=== PATIENT | female | born 1965 | race Caucasian/White ===

== ENCOUNTER 2022-03-22 11:43 | Outpatient (CLI) | payer BC | END 2022-03-22 11:44 | disposition home or self-care (01) | LOC: CSHMAMMO 11:43 | PROVIDERS: ATTEND Family Medicine | DX: Z00.00 Encounter for general adult medical examination without abnormal findings (principal); Z80.3 Family history of malignant neoplasm of breast | CPT/HCPCS: 77063; 77067 ==

== ENCOUNTER 2024-03-25 13:37 | Outpatient (CLI) | payer BC | END 2024-03-25 13:38 | disposition home or self-care (01) | LOC: CSHMAMMO 13:37 | PROVIDERS: ATTEND Family Medicine | DX: Z12.31 Encounter for screening mammogram for malignant neoplasm of breast (principal); Z80.3 Family history of malignant neoplasm of breast | CPT/HCPCS: 77063; 77067 ==